=== PATIENT | female | born 1960 | race Two or more races ===

== ENCOUNTER 2016-12-02 16:10 | Emergency (ER) | payer SELFPAY ==
[~2016-12-02] VITALS: Ht 167.6 cm; Wt 56.7 kg
[2016-12-02] MEDS ORDERED: SODIUM CHLORIDE 0.9% 1,000 ML IV ONE (17:02)
[2016-12-02] MEDS ORDERED: METOCLOPRAMIDE HCL 5MG/ml INJ 2ml VIAL IV ONE (17:15)
[2016-12-02] MEDS ORDERED: HYDROmorphone HCL 2 MG/ML VL IV ONE ×2 (17:15→19:45)
[2016-12-02 17:38] LABS: Basophils # (auto) 0.1 uL; Basophils % (auto) 0.7 % (0.0-2.0); Eosinophils # (auto) 0.2 uL; Eosinophils % (auto) 2.2 % (0.0-7.0); Hematocrit 41.3 % (36.0-46.0); Hemoglobin 13.7 g/dL (12.2-16.2); Lymphocytes # (auto) 1.8 uL; Lymphocytes % (auto) 20.1 % (10.0-50.0); Mean Corpuscular Hemoglobin 29.6 pg (28.0-32.0); Mean Corpuscular Hgb Conc. 33.2 g/dL (32.0-36.0); Mean Corpuscular Volume 89.1 fL (80.0-100.0); Mean Platelet Volume 7.6 fL (7.4-10.4); Monocytes # (auto) 0.5 uL; Monocytes % (auto) 5.6 % (0.0-12.0); Neutrophils # (auto) 6.3 uL; Neutrophils % (auto) 71.4 % (37.0-80.0); Platelet Count (auto) 313 10^3/uL (140-450); Red Cell Distribution Width 13.6 % (11.6-16.0); White Blood Cell 8.8 10^3/uL (4.4-10.8)
[2016-12-02 17:52] LABS: BUN/Creatinine Ratio 18.1; Potassium 3.7 mmol/L (3.5-5.1)
[2016-12-02] MEDS ORDERED: cefTRIAXone 1GM/50ML D5W 50 ML IV ONE (18:45)
[2016-12-02 22:39] VITALS: BP 101/72
== END 2016-12-02 22:58 | disposition short-term general hospital (02) ==
LOC: ER 16:13
DX: S02.609A Fracture of mandible, unspecified, initial encounter for closed fracture (principal); S68.512A Complete traumatic transphalangeal amputation of left thumb, initial encounter; S01.81XA Laceration without foreign body of other part of head, initial encounter; F17.210 Nicotine dependence, cigarettes, uncomplicated; X58.XXXA Exposure to other specified factors, initial encounter; Y93.89 Activity, other specified; Y99.8 Other external cause status; Y92.89 Other specified places as the place of occurrence of the external cause
CPT/HCPCS: 12011; 36415; 70486; 71010; 73130; 80048; 85025; 96361; 96365; 96375; 96376; 99285; J0696; J1170; J2765; 73140

== ENCOUNTER 2024-04-25 19:33 | Inpatient (IN) | payer MEDICAID, OTHER ==
[~2024-04-25] VITALS: Ht 162.6 cm; Wt 53.3 kg
[2024-04-25 20:17] LABS: Basophils # (auto) 0 10 ^3/uL (0-0.2); Basophils % (auto) 0.4 % (0.0-2.0); Eosinophils # (auto) 0.1 10 ^3/uL (0-0.8); Eosinophils % (auto) 0.6 % (0.0-7.0); Hematocrit 41.2 % (36.0-46.0); Lymphocytes # (auto) 1.4 10 ^3/uL (0.4-5.4); Lymphocytes % (auto) 13.3 % (10.0-50.0); Mean Corpuscular Hemoglobin 30.3 pg (28.0-32.0); Monocytes # (auto) 1.1 10 ^3/uL (0-1.3); Monocytes % (auto) 10.9 % (0.0-12.0); Neutrophils # (auto) 7.7 10 ^3/uL (1.6-8.6); Neutrophils % (auto) 74.8 % (37.0-80.0); Nucleated Red Blood Cells % 0.1 %; Platelet Count (auto) 337 10^3/uL (140-450); Red Blood Cells 4.63 10^6/uL (4.0-5.20); Red Cell Distribution Width 14.5 % (11.8-14.3); White Blood Cell 10.3 10^3/uL (4.4-10.8)
[2024-04-25 20:33] LABS: Alanine Aminotransferase 27 U/L (7-40); Albumin 4.3 g/dL (3.2-4.8); Alkaline Phosphatase 91 U/L (46-116); Anion Gap 6 (5-15); Aspartate Aminotransferase 28 U/L (13-40); BUN/Creatinine Ratio 10.7 (10.0-20.0); Bilirubin, Total 0.6 mg/dL (0.2-1.0); Blood Urea Nitrogen 9 mg/dL (9-23); Calcium 9.9 mg/dL (8.7-10.4); Carbon Dioxide 25 mmol/L (20-30); Chloride 106 mmol/L (98-107); Glucose 114 mg/dL (74-106); Magnesium 2.2 mg/dL (1.6-2.6); Potassium 4.1 mmol/L (3.5-5.1); Sodium 137 mmol/L (136-145); Total Protein 6.9 g/dL (5.7-8.2)
[2024-04-25] MEDS: methylPREDNISolone SOD SUCC 125 MG/2 ML VL IV ONE (21:00)
[2024-04-25] MEDS: IPRATROPIUM BROM 0.5 MG/2.5ML INH SOL ONE (21:15)
[2024-04-25] MEDS: ALBUTEROL SULF 2.5 MG/0.5ML(0.5%) NEB SOLN ONE (21:15)
[2024-04-25] MEDS: IPRATROPIUM BROM 0.5 MG/2.5ML INH SOL NEB ONE (21:23)
[2024-04-25] MEDS: ALBUTEROL SULF 2.5 MG/0.5ML(0.5%) NEB SOLN NEB ONE (21:23)
[2024-04-25] MEDS ORDERED: NITROGLYCERIN 0.4 MG SL TAB SL PRN (22:15)
[2024-04-25] MEDS ORDERED: ONDANSETRON HCL 4 MG/2 ML VIAL IV PRN (22:15)
[2024-04-25] MEDS ORDERED: MORPHINE SULFATE INJ 2 MG/ml SYRG IV PRN (22:15)
[2024-04-25 22:18] VITALS: O2SAT 97
[2024-04-25 22:19] VITALS: PULSE 94; RESP 18; TEMP 97.8; O2SAT 97
[2024-04-25 22:52] LABS: Triglycerides 82 mg/dL (< 150)
[2024-04-25 22:53] LABS: LDL Cholesterol 85 mg/dL (< 100)
[2024-04-25 22:54] LABS: Cholesterol 161 mg/dL (< 200); HDL Cholesterol 60 mg/dL (40-59)
[2024-04-26] VITALS (7 sets, daily range): BP systolic 111–113; BP diastolic 72–80; PULSE 77–97; RESP 16–18; TEMP 97.8–99.2; O2SAT 96–99
[2024-04-26] MEDS: NITROGLYCERIN 0.4 MG SL TAB SL ONE (05:57)
[2024-04-26] MEDS: ASPirin 325 MG TAB PO ONE (06:02)
[2024-04-26 06:27] LABS: Chloride 107 mmol/L (98-107); Potassium 3.7 mmol/L (3.5-5.1); Sodium 134 mmol/L (136-145)
[2024-04-26 06:28] LABS: Anion Gap 5 (5-15); Calcium 10.1 mg/dL (8.7-10.4); Carbon Dioxide 22 mmol/L (20-30)
[2024-04-26 06:33] LABS: BUN/Creatinine Ratio 12.3 (10.0-20.0); Blood Urea Nitrogen 10 mg/dL (9-23); Glucose 129 mg/dL (74-106)
[2024-04-26] MEDS: ASPirin 81 mg TAB PO SCH (09:54)
[2024-04-26] MEDS: ENOXAPARIN SOD 40 MG/0.4 ML SYRINGE SC SCH (09:55)
[2024-04-26 10:25] LABS: Urine Bacteria None Seen /hpf (None Seen)
[2024-04-26 10:52] LABS: Urine Blood TRACE /uL (Negative); Urine Clarity Clear (Clear); Urine Color Yellow (Yellow); Urine Mucus FEW (None Seen); Urine Protein, UAD 1+ (Negative); Urine Specific Gravity 1.027 (1.001-1.035); Urine Urobilinogen Normal (Negative); Urine WBC 2 /hpf (0 - 5)
[2024-04-26 10:55] LABS: Amphetamine Screen, Urine Pos (NEGATIVE); Barbiturate Scree,Urine Neg (NEGATIVE)
[2024-04-26 10:56] LABS: Benzodiazephine Screen, Urine Neg (NEGATIVE)
[2024-04-26 10:57] LABS: Cocaine Screen, Urine Neg (NEGATIVE)
[2024-04-26 10:58] LABS: Cannabinoid Screen, Urine Pos (NEGATIVE); Opiate Scree,Urine Neg (NEGATIVE); Phencyclidine Screen, Urine Neg (NEGATIVE)
[2024-04-26 11:10] LABS: Triglycerides 78 mg/dL (< 150)
[2024-04-26 11:11] LABS: LDL Cholesterol 79 mg/dL (< 100)
[2024-04-26 11:12] LABS: Cholesterol 155 mg/dL (< 200); HDL Cholesterol 62 mg/dL (40-59)
[2024-04-26] MEDS: ALBUTEROL SULF 2.5 MG/0.5ML(0.5%) NEB SOLN NEB PRN (17:57)
[2024-04-26] MEDS: TEMAZEPAM 15 MG CAP PO PRN (21:47)
[2024-04-26] MEDS: ATORVASTATIN 20 MG TAB PO SCH (21:48)
[2024-04-27] VITALS (10 sets, daily range): BP systolic 10–114; BP diastolic 71–79; PULSE 75–90; RESP 16–20; TEMP 97.2–99.2; O2SAT 93–97
[2024-04-27] MEDS: LEVOTHYROXINE SODIUM 25 MCG TAB PO SCH (05:34)
[2024-04-27 07:07] LABS: Free Thyroxine Index 1.6 (1.2-4.9); Thyroxine (T4) 5.1 ug/dL (4.5-12.0)
[2024-04-27 07:13] LABS: Basophils # (auto) 0 10 ^3/uL (0-0.2); Basophils % (auto) 0.6 % (0.0-2.0); Eosinophils # (auto) 0.2 10 ^3/uL (0-0.8); Eosinophils % (auto) 2.8 % (0.0-7.0); Hematocrit 39.9 % (36.0-46.0); Hemoglobin 13.6 g/dL (12.2-16.2); Lymphocytes # (auto) 1.5 10 ^3/uL (0.4-5.4); Lymphocytes % (auto) 23.4 % (10.0-50.0); Mean Corpuscular Hemoglobin 30.3 pg (28.0-32.0); Mean Corpuscular Volume 89.2 fL (80.0-100.0); Monocytes # (auto) 0.6 10 ^3/uL (0-1.3); Monocytes % (auto) 8.8 % (0.0-12.0); Neutrophils # (auto) 4.1 10 ^3/uL (1.6-8.6); Neutrophils % (auto) 64.4 % (37.0-80.0); Platelet Count (auto) 312 10^3/uL (140-450); Red Blood Cells 4.48 10^6/uL (4.0-5.20); Red Cell Distribution Width 14.2 % (11.8-14.3); White Blood Cell 6.4 10^3/uL (4.4-10.8)
[2024-04-27 07:38] LABS: Alanine Aminotransferase 18 U/L (7-40); Albumin 4.1 g/dL (3.2-4.8); Alkaline Phosphatase 77 U/L (46-116); Anion Gap 6 (5-15); Aspartate Aminotransferase 13 U/L (13-40); BUN/Creatinine Ratio 12.5 (10.0-20.0); Blood Urea Nitrogen 11 mg/dL (9-23); Calcium 9.6 mg/dL (8.7-10.4); Carbon Dioxide 27 mmol/L (20-30); Chloride 105 mmol/L (98-107); Free T3 2.1 pg/mL (2.3-4.2); Free T4 (Free Thyroxine) 0.82 ng/dL (0.89-1.76); Glucose 89 mg/dL (74-106); Sodium 138 mmol/L (136-145)
[2024-04-27 07:39] LABS: Bilirubin, Total 0.6 mg/dL (0.2-1.0); Total Protein 6.6 g/dL (5.7-8.2)
[2024-04-27] MEDS: ACETAMINOPHEN 325 MG TAB PO PRN (12:00)
[2024-04-28 05:00] VITALS: BP 130/70; PULSE 80; RESP 18; TEMP 98.2; O2SAT 99
[2024-04-28] MEDS: LEVOTHYROXINE SODIUM 50 MCG TAB PO SCH (05:34)
[2024-04-28 08:00] VITALS: RESP 16; O2SAT 95
[2024-04-28 09:27] VITALS: BP 111/80; PULSE 81; RESP 17; TEMP 97.6; O2SAT 96
== END 2024-04-28 11:41 | disposition left against medical advice (07) | DRG 141 ==
LOC: ER 19:33 → TELE 22:14 → TELE-EAST 04-26 15:38 → EAST 04-28 04:21
PROVIDERS: ADMIT Internal Medicine; ATTEND Internal Medicine
DX: J45.901 Unspecified asthma with (acute) exacerbation (principal); E03.9 Hypothyroidism, unspecified; F32.A Depression, unspecified; Z53.29 Procedure and treatment not carried out because of patient's decision for other reasons; Z90.710 Acquired absence of both cervix and uterus; Z90.49 Acquired absence of other specified parts of digestive tract; Z91.51 Personal history of suicidal behavior; F19.10 Other psychoactive substance abuse, uncomplicated; F12.90 Cannabis use, unspecified, uncomplicated
CPT/HCPCS: 36415; 36600; 71045; 80048; 80053; 80061; 80307; 81001; 82805; 83036; 83735; 83880; 84439; 84443; 84481; 84484; 85025; 85379; 93005; 93306; 94640; G0378